=== PATIENT | male | born 1955 | race Caucasian/White ===

== ENCOUNTER 2020-01-29 07:28 | Outpatient (CLI) | payer BC, SELFPAY ==
--- NOTE | ~2020-01-29 | CT_ITS ---
EXAMINATION: CT abdomen pelvis w con EXAM DATE: 01/29/2020 08:18 INDICATION: Blood in urine. TECHNIQUE: Spiral CT of the abdomen and pelvis was performed following intravenous injection of 100 m L Omnipaque 350. Axial, coronal and sagittal images were reviewed. The dose-length product (DLP) fo r this examination was 571.84 mGy-cm. The exposure was tailored according to patient size (auto mA e xposure control), and iterative reconstruction (ASIR) was used as additional dose reduction technique . Comparison is made to prior examination from 09/23/2019. FINDINGS: Nodular cirrhotic atrophic appearing liver with small amount of ascites. There is splenomeg moose, spleen measuring 18 cm. There is portal hypertension with recannulized ligamentum teres. There i s nonocclusive thrombus within the portal vein, along the posterior wall, appears to be adherent to t he wall suggesting this has some chronicity. Thrombus also extends into one of several of the early b ranching superior mesenteric veins draining small bowel in the left lower quadrant. No arterial throm bus. Bowel supplied by the partially thrombosed superior mesenteric branch appears similar to the rem ainder of the bowel. There is generalized fat stranding surrounding the colon and small bowel, probab ly result of the ascites. There are cholecystectomy clips. Adrenal glands, pancreas are unremarkable. There is a nonobstructin g stone in the right renal pelvis measuring 7 mm, without hydronephrosis. Additional 7 and 3 mm right calyceal stones. Couple of smaller left calyceal stones. Left renal cyst measuring 2 cm. The prosta te is unremarkable. The bladder is unremarkable. There is no retroperitoneal or pelvic lymphadenopa thy. There is mild scattered arteriosclerotic disease. Some surgical changes, small bowel anastomosis material, in this patient with history of Crohn's dise ase. Appendix is not specifically identified. No free intraperitoneal gas. The heart is normal in s ize. There are no pericardial or pleural effusions. Small amount of basilar linear scarring or atel ectasis. There are no osteoblastic or osteolytic lesions identified. Sizable disc bulge with vacuum disc phenomenon causing at least moderate central canal stenosis at L2-3 level. IMPRESSION: 1. Cirrhosis, portal hypertension with splenomegaly, small to moderate ascites and generalized mesen teric fat stranding. 2. Nonocclusive portal venous thrombus also extending into a branch SMV. Bowel drained by this branc h has similar appearance to the remainder of patient's bowel, no CT evidence of ischemia. 3. Bilateral nephrolithiasis including nonobstructing right renal pelvic stone. 4. Other chronic findings. Reviewed, dictated and finalized at location A. IMPRESSION: 1. Cirrhosis, portal hypertension with splenomegaly, small to moderate ascites and generalized mesenteric fat stranding. 2. Nonocclusive portal venous thrombus also extending into a branch SMV. Bowel drained by this branch has similar appearance to the remainder of patient's lashay wel, no CT evidence of ischemia. 3. Bilateral nephrolithiasis including nonobstructing right renal pelvic stone . 4. Other chronic findings.
[2020-01-29 08:06] LABS: Estimated Glomerular Filt Rate > 60
== END 2020-01-29 07:29 | disposition home or self-care (01) ==
PROVIDERS: PCP Family Medicine Adolescent Medicine; Referring Provider Urology; Visit Provider Family Medicine Adolescent Medicine
DX: R31.9 Hematuria, unspecified (principal); K74.60 Unspecified cirrhosis of liver; K76.6 Portal hypertension; R16.1 Splenomegaly, not elsewhere classified; R18.8 Other ascites; I81 Portal vein thrombosis; N20.0 Calculus of kidney
CPT/HCPCS: 36415; 74177; Q9967

== ENCOUNTER 2020-02-14 12:41 | Outpatient (CLI) | payer BC, SELFPAY ==
--- NOTE | ~2020-02-14 | XR_ITS ---
XR lumbar spine min 4V DATE: 02/14/2020 13:10 INDICATION: Abnormal serum immunologic findings TECHNIQUE: AP, lateral, coned lateral lumbosacral, bilateral oblique views COMPARISON: None FINDINGS: There is a transitional fifth lumbar vertebra. There is severe degenerative disc disease at L2-3, L4-5, moderately severe degenerative disc disease and mild retrolisthesis at L3-4. Moderate osteopenia. No fracture or bone destruction is evident. The included lower thoracic and lumb ar pedicles are intact. No spondylolysis is evident. No anterolisthesis. The sacroiliac joints appear normal. Surgical clips overlie the right upper and lower quadrants and left medial pelvic area. Bilateral andrea al calcifications. IMPRESSION: Transitional fifth lumbar vertebra Prominent degenerative disc disease at multiple levels, with associated retrolisthesis at L3-4 Reviewed, dictated and finalized at location A. IMPRESSION: Transitional fifth lumbar vertebra Prominent degenerative disc disease at multiple levels, with associated retroli sthesis at L3-4
--- NOTE | ~2020-02-14 | XR_ITS ---
XR sacroiliac joints min 3V DATE: 02/14/2020 13:10 INDICATION: Abnormal serum immunological findings TECHNIQUE: AP and bilateral oblique views COMPARISON: None FINDINGS: There is a transitional lumbosacral vertebra with sacralization and pseudoarthrosis. There is severe degenerative disc disease at the disc space above the transitional lumbosacral vertebra. Ad ditional levels of degenerative disc disease are identified in the lumbar region. The sacroiliac joints are intact. No erosive change or ankylosis is detected. The pubic symphysis is intact. Hip joint spaces are symmetric and well preserved. IMPRESSION: Normal sacroiliac joints; no erosive change or ankylosis Transitional lumbosacral vertebra Multilevel degenerative disc disease of the lumbar spine Reviewed, dictated and finalized at Location A. Reviewed, dictated and finalized at location A.
--- NOTE | ~2020-02-14 | XR_ITS ---
XR abdomen/kub 1V DATE: 02/14/2020 13:10 INDICATION: Calcium kidney stone TECHNIQUE: AP projection, 2 views COMPARISON: None FINDINGS: Multiple calcifications overlying each kidney, larger and more numerous on the right, measu ring up to 6 7 7 mm on the right. Splenomegaly. The psoas shadows are intact. The bowel gas pattern is unremarkable, without evidence of obstruction. Surgical clips overlie the right upper and lower quadrants and lower left mid abdomen and pelvis. IMPRESSION: Bilateral nephrolithiasis Splenomegaly Postoperative changes Reviewed, dictated and finalized at Location A. Reviewed, dictated and finalized at location A.
== END 2020-02-14 12:42 | disposition home or self-care (01) ==
PROVIDERS: PCP Family Medicine Adolescent Medicine; Referring Provider Urology; Visit Provider Internal Medicine
DX: N20.0 Calculus of kidney (principal); R76.8 Other specified abnormal immunological findings in serum; R53.83 Other fatigue; M07.60 Enteropathic arthropathies, unspecified site; K50.90 Crohn's disease, unspecified, without complications; R16.1 Splenomegaly, not elsewhere classified; M51.36 Other intervertebral disc degeneration, lumbar region
CPT/HCPCS: 72110; 72202; 74018

== ENCOUNTER 2020-03-24 13:37 | Outpatient (CLI) | payer BC, SELFPAY ==
--- NOTE | 2020-03-24 13:42 | ECG_ITS ---
Measurements Intervals [place] Rate: 88 P: 62 CO: 147 QRS: 32 QRSD: 89 T: 55 QT: 340 QTc: 413 Interpretive Statements SINUS RHYTHM NORMAL ECG Electronically Signed On 03-24-2020 14:03:13 CDT by Bishop Harrison D.O.
[2020-03-24 14:10] LABS: INR 1.1; Prothrombin Time 13.8 Seconds (11.1-14.7)
== END 2020-03-24 13:38 | disposition home or self-care (01) ==
LOC: ANHSURGERY 13:42
PROVIDERS: PCP Family Medicine Adolescent Medicine; Visit Provider Urology
DX: N20.0 Calculus of kidney (principal); I10 Essential (primary) hypertension
CPT/HCPCS: 36415; 85610; 85730; 87086; 93005

== ENCOUNTER 2020-04-01 01:03 | Outpatient (CLI) | payer BC, SELFPAY ==
[2020-04-01 18:07] LABS: SARS-CoV-2 RNA PCR Negative
== END 2020-04-01 01:04 | disposition home or self-care (01) ==
LOC: ANHCOVIDDT 01:03
PROVIDERS: PCP Family Medicine Adolescent Medicine; Visit Provider Urology
DX: Z01.812 Encounter for preprocedural laboratory examination (principal); Z11.59 Encounter for screening for other viral diseases
CPT/HCPCS: 87635; C9803; U0003

== ENCOUNTER 2020-04-03 02:06 | Day surgery (SDC) | payer BC, SELFPAY ==
[2020-03-23 15:53] VITALS: BMI 25.1
[2020-04-03] VITALS (7 sets, daily range): BP systolic 125–138; BP diastolic 77–87; PULSE 63–82; RESP 12–189; TEMP 36.1–36.3; O2SAT 97–100
--- NOTE | ~2020-04-03 | XR_ITS ---
EXAMINATION: XR abdomen/kub 1V DATE: 04/03/2020 07:43 INDICATION: Right kidney stone. TECHNIQUE: A supine view of the abdomen on 2 radiographs was obtained. COMPARISON: Abdomen radiographs 02/14/2020, CT abdomen and pelvis 01/29/2020 FINDINGS: There are no dilated loops of bowel. There is a 6 mm stone in right renal pelvis. There are 6 mm and 4 mm stones in right kidney. There are 2 stones in left kidney with the larger measuring 4 mm. Surgical clips overlie the abdomen. IMPRESSION: 1. Bilateral kidney stones. Reviewed, dictated and finalized at location A. IMPRESSION: 1. Bilateral kidney stones.
--- NOTE | 2020-04-03 07:25 | WPDHPUPDATE1 ---
History and Physical Update Update Date/Time: 04/03/20 07:25 History and Physical has been reviewed, including an updated exam of the patient. There are NO changes in the patient's condition. Risks, benefits, and alternatives have been discussed and questions answered. Patient agrees to proceed with procedure.
[2020-04-03] MEDS: LACTATED RINGERS 1,000 ML 30 ML IV CONT ×2 (08:15→10:50)
--- NOTE | 2020-04-03 09:01 | WPDANESEPPF ---
Anes - Initial Pre Proc Eval Procedure: Operation Date: 04/03/20 09:30 Proposed Procedures p Flexible Cystoscopy, Right Renal Extracorporeal Shock Wave Lithotripsy - Edin Birch MD Date/Time: 04/03/20 09:01 Surgeon: Edin Birch MD Pre Op Diagnosis: Right Renal Stone Patient Data Age: 64 Gender: M Height: 5 ft 9 in Weight: 77.65 kg Last Vital Signs Temp 36.1 C L 04/03/20 07:52 Pulse 82 04/03/20 07:52 Resp 189 H 04/03/20 07:52 BP 125/84 04/03/20 07:52 Pulse Ox 99 04/03/20 07:52 Allergies Allergy/AdvReac Type Severity Reaction Status Date / Time ciprofloxacin Allergy Unknown REACTED TO Verified 04/03/20 08:33 VIGAMOX AND INSTRUCTED NOT TO TAKE CIPRO moxifloxacin Allergy Unknown REDNESS IN Verified 04/03/20 08:33 EYES Home Medications Medication Instructions Recorded Confirmed Type cyanocobalamin (vitamin B-12) 1,000 mcg PO DAILY 10/01/19 03/23/20 History [Vitamin B-12] cyclosporine [Restasis] 1 drp OPHTHALMIC (EYE) Q12H 10/01/19 03/23/20 History hydrocodone-acetaminophen 1 tablet PO TID PRN 10/01/19 03/23/20 History lisinopril 40 mg PO DAILY 10/01/19 03/23/20 History magnesium oxide 400 mg PO BID 10/01/19 03/23/20 History omeprazole 20 mg PO DAILY 10/01/19 03/23/20 History potassium chloride 20 meq PO DAILY 10/01/19 03/23/20 History valacyclovir 500 mg PO DAILY 10/01/19 03/23/20 History amlodipine 10 mg tablet 10 mg PO DAILY 01/31/20 03/23/20 History prednisone 20 mg tablet 20 mg PO DAILY tablet 01/31/20 03/23/20 History Medical Cannabis 1 applic PO DIRECTED PRN 03/23/20 04/03/20 History cholecalciferol (vitamin D3) 125 mcg PO WEEKLY 03/23/20 03/23/20 History [Vitamin D3] doxazosin 2 mg PO DAILY 03/23/20 03/23/20 History ustekinumab [Stelara] 90 mg SUBCUT USEASDIRECTD 03/23/20 03/23/20 History Patient hx anesthesia problems: none Family hx anesthesia problems: none PMFSH Past Medical History Medical History Arthritis Arthropathy in Crohn's disease (~1972) Crohn's disease Fatigue GERD (gastroesophageal reflux disease) Hypertension Kidney stone Surgical History Surgical History History of lithotripsy S/P small bowel resection Family History Family History Other Cerebrovascular accident Diabetes mellitus Family history of arthritis Family history of cardiovascular disease Hypertension Social History Social History Smoking status: Never smoker Alcohol intake: current Substance use: current Substance use type: marijuana Other substance usage details: MEDICAL MARIJUANA FOR PAIN CONTROL Spiritual care concerns: No Anes - Eval Final PreProcedure Day of Procedure 04/03/20 09:01 Patient weight: normal Heart: regular rate and rhythm Lungs: clear to auscultation Airway: Mallampati scale class II Neurological: alert and oriented Last oral intake: >/= 8 hours ASA classification: III Emergent: no Anesthetic plan: proceed Anesthesia type and monitoring: general LMA and standard monitoring Informed Consent: The patient's anesthetic plan and its attendant risks and benefits were discussed with the patient/family/POA. Questions were solicited and answers provided to the satisfaction of the patient/family/POA.
--- NOTE | 2020-04-03 09:27 | WPDHPUPDATE1 ---
History and Physical Update Update Date/Time: 04/03/20 09:27 History and Physical has been reviewed, including an updated exam of the patient. There are NO changes in the patient's condition. Risks, benefits, and alternatives have been discussed and questions answered. Patient agrees to proceed with procedure.
[2020-04-03] MEDS: ceFAZolin 2 GM/D5W 50 ML 2 GM/50 ML BAG IVPB (09:49)
[2020-04-03] MEDS: LIDOCAINE HCL 2% GEL UROJET 10 ML PKG MUCOUS MEM (10:07)
--- NOTE | 2020-04-03 10:41 | PM.PROC ---
Procedure Note - Detailed Date of procedure: 04/03/20 Pre-op diagnosis: Right Renal Stone Right renal stone, hematuria Post-op diagnosis: same Procedure performed: ESWL of right renal calculus. Two thousand shocks to the larger 7 mm stone. Five hundred shocks to the lower pole stone measuring 4 mm. Flexible cystoscopy Description of procedure: Patient was taken to the operative suite and correctly identified. Once anesthesia was obtained he was placed in supine position prepped and draped usual sterile fashion. Flexible cystoscopy was performed. Sixteen [place] scope was placed under direct vision. There were no urethral strictures. Prostate had some mild lateral lobe hypertrophy. Bladder itself has no evidence of tumors or other irregularities. Both ureteral orifices normal anatomic position with clear efflux. Scope was removed. 2% viscous lidocaine was inserted urethra. Patient was then repositioned with the larger 7 mm stone of the right kidney visualized in both planes. Two thousand shocks were given to this stone. We then gave our attention to a another lower pole stone and gave the remaining 500 shocks. Patient tolerated procedure well without any complications taken recovery room stable condition. Given the standard post lithotripsy instruction will follow up in 10-14 days with a KUB. Develops any problems he will call so we can deal with appropriately. Anesthesia: GLMA Surgeon: Edin Birch MD Drains: No Packing: No Pathology: none sent Complications: No immediate complications Condition: stable Disposition: PACU
== END 2020-04-03 12:55 | disposition home or self-care (01) ==
PROVIDERS: PCP Family Medicine Adolescent Medicine; Visit Provider Urology
PROC: (CPT 50590; principal; 2020-04-03 09:30)
DX: N20.0 Calculus of kidney (principal); K50.90 Crohn's disease, unspecified, without complications; K21.9 Gastro-esophageal reflux disease without esophagitis; I10 Essential (primary) hypertension; F12.90 Cannabis use, unspecified, uncomplicated
CPT/HCPCS: 50590; 74018; 87635; A9270; C9803; J0131; J0690; J1100; J1720; J2370; J2405; J2704; J3010; J7120; U0003

== ENCOUNTER 2020-04-16 12:02 | Outpatient (CLI) | payer BC, SELFPAY ==
--- NOTE | ~2020-04-16 | XR_ITS ---
XR abdomen/kub 1V DATE: 04/16/2020 12:18 INDICATION: Calcium kidney stone. Right recent lithotripsy. TECHNIQUE: AP projection, 2 views COMPARISON: 04/03/2020 KUB FINDINGS: There is a similar residual calcified calculus of the upper pole of the right kidney. Multi ple calcifications overlying the lower pole of the right kidney in the right renal pelvis on 0 are no longer evident. There is no apparent calcification overlying the right or left ureters. There are 2 small calcifications of the mid left kidney, present on 04/03/2020. The psoas shadows are intact. No visceromegaly is evident. No bowel obstruction is evident. Surgical clips overlie the right upper quadrant and right lower quadrant and mid lower abdomen and pe lvis. Multilevel degenerative disc disease of the lumbar spine. IMPRESSION: Interval resolution of multiple right renal and renal pelvic calcified calculi since 04/03 following reported lithotripsy Residual small upper pole right renal calcified stone and at least 2 small mid left renal calcified s tones. Reviewed, dictated and finalized at Location A. Reviewed, dictated and finalized at location B. IMPRESSION: Interval resolution of multiple right renal and renal pelvic calcif ied calculi since 04/03/2020 following reported lithotripsy Residual small upper pole right renal calcified stone and at least 2 small mid left renal calcified stones.
== END 2020-04-16 12:03 | disposition home or self-care (01) ==
PROVIDERS: PCP Family Medicine Adolescent Medicine; Visit Provider Urology
DX: N20.2 Calculus of kidney with calculus of ureter (principal)
CPT/HCPCS: 74018

== ENCOUNTER 2020-06-15 12:48 | Outpatient (CLI) | payer BC, SELFPAY | END 2020-06-15 12:49 | disposition home or self-care (01) | LOC: ANHAUDIO 12:50 | PROVIDERS: PCP Family Medicine Adolescent Medicine; Visit Provider Family Medicine Adolescent Medicine | DX: H90.3 Sensorineural hearing loss, bilateral (principal) | CPT/HCPCS: 92557; 92567 ==

== ENCOUNTER 2020-07-26 08:34 | Emergency (ER) | payer BC, SELFPAY ==
--- NOTE | ~2020-07-26 | XR_ITS ---
EXAMINATION: XR hip LT 2V w AP pelvis INDICATION: Left hip pain and swelling TECHNIQUE: AP view the pelvis and two views of the left hip are obtained. COMPARISON: 02/14/2020 FINDINGS: Bone alignment is normal. There is no fracture. Surgical clips are noted in the pelvis and right mid abdomen. There is calcified atherosclerosis. IMPRESSION: 1. No acute osseous abnormality. Reviewed, dictated and finalized at location A. Y MACHINERY OPERATOR
--- NOTE | ~2020-07-26 | US_ITS ---
EXAMINATION: US venous doppler [facility] DATE: 07/26/2020 10:05 INDICATION: Left lower limb swelling TECHNIQUE: Lance scale images without and with compression and Doppler images of the left lower extrem ity veins were obtained. COMPARISON: None FINDINGS: There is thrombosis of the left common femoral vein, profunda femoral vein, femoral vein, g reater saphenous vein, and popliteal veins. The peroneal trunk trunk and posterior tibial veins are p atent. IMPRESSION: 1. Deep venous thrombosis of the left lower extremity as detailed above. These findings were discussed with Dr. Corrie Harp MD in the Emergency Department at 1014 hours on 07/26/2020. Reviewed, dictated and finalized at location A. BONE DRIER IMPRESSION: 1. Deep venous thrombosis of the left lower extremity as detailed above. These findings were discussed with Dr. Corrie Harp MD in the Emergency De partment at 1014 hours on 07/26/2020.
[2020-07-26 08:49] VITALS: BP 119/89; PULSE 86; RESP 14; TEMP 36.9; O2SAT 99
--- NOTE | 2020-07-26 09:19 | ED.EXTPRO ---
HPI - Extremity Problem General Chief complaint: Extremity Problem,Nontraumatic Stated complaint: left leg swelling Time Seen by Provider: 07/26/20 08:52 Source: patient Mode of arrival: ambulatory Limitations: no limitations History of Present Illness HPI Narrative: This patient is a 64 year old male with history of Chrohn's Disease who presents for evaluation left leg swelling. PAtient states he noticed left lateral hip soreness yesterday. He reports he has this pain intermittently and frequently so he thought his pain was arthritis. He woke up this morning with his entire left leg swollen. He denies history of dVT. HE denies fever, chills, chest pain or sob. MD Complaint: extremity swelling Related Data Home Medications Medication Instructions Recorded Confirmed Restasis 1 drp OPHTHALMIC (EYE) Q12H 10/01/19 04/21/20 cyanocobalamin (vitamin B-12) 1,000 mcg PO DAILY 10/01/19 04/21/20 [Vitamin B-12] hydrocodone-acetaminophen 1 tablet PO TID PRN 10/01/19 04/21/20 lisinopril 40 mg PO DAILY 10/01/19 04/21/20 magnesium oxide 400 mg PO BID 10/01/19 04/21/20 omeprazole 20 mg PO DAILY 10/01/19 04/21/20 potassium chloride 20 meq PO DAILY 10/01/19 04/21/20 valacyclovir 500 mg PO DAILY 10/01/19 04/21/20 amlodipine 10 mg tablet 10 mg PO DAILY 01/31/20 04/21/20 prednisone 20 mg tablet 20 mg PO DAILY tablet 01/31/20 03/23/20 Medical Cannabis 1 applic PO DIRECTED PRN 03/23/20 04/21/20 Stelara 90 mg SUBCUT USEASDIRECTD 03/23/20 04/21/20 cholecalciferol (vitamin D3) 125 mcg PO WEEKLY 03/23/20 04/21/20 [Vitamin D3] doxazosin 2 mg PO DAILY 03/23/20 04/21/20 budesonide 3 mg 3 mg PO DAILY 04/21/20 04/21/20 capsule,delayed,extended release budesonide 3 mg 6 mg PO DAILY each 04/21/20 04/21/20 capsule,delayed,extended release Allergies Allergy/AdvReac Type Severity Reaction Status Date / Time ciprofloxacin Allergy Unknown REACTED TO Verified 04/21/20 14:35 VIGAMOX AND INSTRUCTED NOT TO TAKE CIPRO moxifloxacin Allergy Unknown REDNESS IN Verified 04/21/20 14:35 EYES Review of Systems Review of Systems: All systems reviewed & are unremarkable except as noted in HPI and below Constitutional: Constitutional: Denies chills and Denies fever(s) Cardiovascular: Cardiovascular: Denies chest pain Respiratory: Respiratory: Denies cough and Denies dyspnea Gastrointestinal: Gastrointestinal: Reports abdominal pain (chronic), Denies nausea and Denies vomiting Musculoskeletal: Musculoskeletal: Reports arthralgias (left hip) Neurologic: Denies focal weakness [facility] Past Medical History Medical History (Updated 07/26/20 @ 18:43 by Corrie Harp MD) Arthritis Arthropathy in Crohn's disease (~1972) Crohn's disease Fatigue GERD (gastroesophageal reflux disease) Hypertension Kidney stone Surgical History Surgical History History of lithotripsy S/P small bowel resection Family History Family History Other Cerebrovascular accident Diabetes mellitus Family history of arthritis Family history of cardiovascular disease Hypertension Social History Social History Smoking status: Never smoker Alcohol intake: current Substance use: current Substance use type: marijuana Other substance usage details: MEDICAL MARIJUANA FOR PAIN CONTROL Spiritual care concerns: No Exam Const: General: no acute distress and alert Orientation/consciousness: patient oriented x3 Eyes: EOM: EOMs intact bilaterally Resp: Effort & Inspection: normal respiratory effort and no retractions Auscultation: clear to auscultation bilaterally Cardio: Rate: regular rate Rhythm: regular rhythm Heart sounds: no murmurs GI: GI Palp: Yes Soft to palpation, No Tenderness to palpation present (GI), No Guarding due to palpation pre
[2020-07-26 09:31] LABS: Basophils Percent Auto 0.2 % (0.2-1.2); Eosinophils Percent Auto 0.7 % (0-4.4); Hematocrit 39.1 % (42.0-52.0); Hemoglobin 12.7 g/dL (14.0-18.0); Immature Granulocyte Absolute 0.05 K/mm3 (0.00-0.031); Immature Granulocyte Percent A 1.1 % (0-0.5); Immature Platelet Fraction Pct 7.8 % (0.9-11.2); Lymphocytes Absolute Auto 0.53 K/mm3 (0.9-3.2); Lymphocytes Percent Auto 11.5 % (18.3-44.2); Mean Corpuscular HGB Conc 32.5 g/dl (32-36); Mean Corpuscular Hemoglobin 29.5 pg (26-34); Mean Corpuscular Volume 90.7 fl (80-100); Mean Platelet Volume 10.9 fl (7.4-10.4); Monocytes Absolute Auto 0.4 K/mm3 (0.1-0.6); Monocytes Percent Auto 9.2 % (2.6-8.5); Neutrophils Absolute Auto 3.6 K/mm3 (1.3-6.7); Neutrophils Percent Auto 77.3 % (45.5-73.1); Platelet Count Result 41 k/mm3 (150-375); Red Blood Count 4.31 M/mm3 (4.6-6.20); Red Cell Distribution Width 14.5 % (11.5-14.5); White Blood Count 4.6 K/mm3 (4.5-10.0)
[2020-07-26 09:37] LABS: INR 1.2; Prothrombin Time 14.4 Seconds (11.1-14.7)
[2020-07-26 09:38] LABS: Partial Thromboplastin Time 23.9 SECONDS (22.3-36.8)
[2020-07-26 09:40] LABS: Alanine Aminotransferase 30 U/L (4-50); Albumin Level 3.8 g/dL (3.5-5.1); Alkaline Phosphatase 89 U/L (38-126); Anion Gap 9 mmol/L (8-16); Aspartate Amino Transferase 36 U/L (17-59); Bilirubin,Total 1.9 mg/dL (0.2-1.3); Blood Urea Nitrogen 16 mg/dL (9-20); Calcium 8.8 mg/dL (8.4-10.2); Carbon Dioxide 26 mmol/L (22-30); Chloride 105 mmol/L (98-107); Estimated CRCL calculation 66 ml/min; Estimated Glomerular Filt Rate > 60; Glucose 110 mg/dL (75-110); Potassium 3.4 mmol/L (3.4-5.0); Sodium 140 mmol/L (137-145)
[2020-07-26] MEDS: APIXABAN 5 MG TABLET 10 MG PO (10:53)
[2020-07-26 11:08] VITALS: BP 115/70; PULSE 60; RESP 12; O2SAT 99
== END 2020-07-26 11:08 | disposition home or self-care (01) ==
PROVIDERS: Emergency Provider General Practice; PCP Family Medicine Adolescent Medicine
DX: I82.412 Acute embolism and thrombosis of left femoral vein (principal); I82.432 Acute embolism and thrombosis of left popliteal vein; I82.492 Acute embolism and thrombosis of other specified deep vein of left lower extremity; K50.90 Crohn's disease, unspecified, without complications; M19.90 Unspecified osteoarthritis, unspecified site; K21.9 Gastro-esophageal reflux disease without esophagitis; I10 Essential (primary) hypertension; Z87.442 Personal history of urinary calculi
CPT/HCPCS: 36415; 73502; 80053; 85025; 85055; 85610; 85730; 93971; 99284; A9270

== ENCOUNTER 2020-09-20 10:06 | Day surgery (SDC) | payer BC, SELFPAY ==
[2020-09-20] VITALS (10 sets, daily range): BP systolic 120–149; BP diastolic 79–94; PULSE 78–104; RESP 8–20; TEMP 36.2–36.8; O2SAT 95–100
--- NOTE | ~2020-09-20 | CT_ITS ---
EXAMINATION: CT abdomen pelvis wo con EXAM DATE: 09/20/2020 10:47 INDICATION: left flank pain TECHNIQUE: Spiral CT of the abdomen and pelvis was performed without contrast. Axial, coronal and sag ittal images were reviewed. The dose-length product (DLP) for this examination was 660.72 mGy-cm. T he exposure was tailored according to patient size (auto mA exposure control), and iterative reconstr uction (ASIR) was used as additional dose reduction technique. Comparison is made to prior examinatio n from 01/29/2020. FINDINGS: Nodular cirrhotic atrophic appearing liver with small amount of ascites. There is splenome darnell, spleen measuring 19 cm. There is portal hypertension with recannulized ligamentum teres and pro minent mesenteric, pericolonic vasculature. Dilated splenic vein near the portal confluence (can't as sess for the thrombus identified on prior study). Mild periportal edema. Cholecystectomy clips. Adren al glands and pancreas are unremarkable. There is a left UVJ 4 mm stone, with mild obstructive nephropathy. Bilateral nephrolithiasis with lar gest stone in each side about 5 mm in size. There is a left renal 2.5 cm cyst. The prostate is unrema rkable. The bladder is unremarkable. There is no retroperitoneal or pelvic lymphadenopathy. There is mild scattered arteriosclerotic disease. Nonspecific fat stranding surrounding the colon unchanged compared to prior study, chronic and potent ially could be from venous congestion. Some surgical changes, small bowel anastomosis material, in this patient with history of Crohn's dise ase. Normal appendix. No free intraperitoneal gas. The heart is normal in size. There are no peric ardial or pleural effusions. Small amount of basilar linear scarring or atelectasis. There are no o steoblastic or osteolytic lesions identified. Sizable disc bulge with vacuum disc phenomenon causing at least moderate central canal stenosis at L2-3 level. IMPRESSION: 1. Left UVJ 4 mm stone, mild obstructive nephropathy. Bilateral nephrolithiasis. 2. Cirrhosis, portal hypertension with splenomegaly, small ascites and generalized mesenteric fat st randing unchanged. Reviewed, dictated and finalized at location A. CAL PATHOLOGY TEACHER IMPRESSION: 1. Left UVJ 4 mm stone, mild obstructive nephropathy. Bilateral nephrolithiasi s. 2. Cirrhosis, portal hypertension with splenomegaly, small ascites and general ized mesenteric fat stranding unchanged.
--- NOTE | ~2020-09-20 | XR_ITS ---
EXAMINATION: XR retrograde pyelo w/stent LT DATE: 09/20/2020 15:03 INDICATION: Left internal ureteral stent placement following stone extraction TECHNIQUE: Fluoroscopic images from a left internal ureteral stent placement are submitted for review . 37 seconds of fluoroscopy time. 29 fluoroscopic images. FINDINGS: There is a left double-J internal ureteral stent projecting in expected position, with proximal Valmy loop at the level of the renal pelvis and distal loop in the pelvis within the bladder lumen. IMPRESSION: 1. Left internal ureteral stent placement. Please refer to real-time procedural findings for detail s. Reviewed, dictated and finalized at location A. ING ACID DUMPER IMPRESSION: 1. Left internal ureteral stent placement. Please refer to real-time procedur al findings for details.
--- NOTE | ~2020-09-20 | CT_ITS ---
EXAMINATION: CT pelvis wo con DATE: 09/20/2020 14:21 INDICATION: Assess stone passage TECHNIQUE: Computed tomography (CT) of the pelvis was performed without intravenous contrast. The dos e-length product was 350.76 mGy-cm. Automated exposure control and iterative reconstruction technique were employed. COMPARISON: CT dated 09/20/2020 FINDINGS: There is a persistent left UVJ stone measuring 4 mm with moderate left hydroureteronephrosi s. There is generalized mesenteric edema. Surgical clips are present in the mid abdomen at the umbili jt level and below the umbilical level. There is atherosclerosis. No lymphadenopathy. There is right testicular hydrocele. Small amount of ascites. Otherwise, no significant change. No acute osseous ab normality. IMPRESSION: 1. Stable position to 4 mm left UVJ stone with moderate hydroureteronephrosis. Reviewed, dictated and finalized at location A. WORKER SEWING
--- NOTE | 2020-09-20 10:16 | ED.GENADULT ---
HPI - General Adult General Chief complaint: Abdominal Pain <MICHELLE Jalloh Last Filed: 09/20/20 14:36> Stated complaint: hematuria, abd pain <MICHELLE Jalloh Last Filed: 09/20/20 14:36> Time Seen by Provider: 09/20/20 10:09 <Karina Johnson PA-C - Last Filed: 09/20/20 14:36> Source: patient <MICHELLE Jalloh Last Filed: 09/20/20 14:36> Mode of arrival: ambulatory <MICHELLE Jalloh Last Filed: 09/20/20 14:36> Limitations: no limitations <MICHELLE Jalloh Last Filed: 09/20/20 14:36> History of Present Illness HPI narrative: This is a 64-year-old male who is a very good historian, states that he has had left flank and groin pain that has been somewhat colicky for the past several days. He has a long history of renal stones, Crohn's disease and most recently a left leg DVT. He is on Eliquis. He states that he could occasionally see rust colored urine, it would clear. And today he does not see any blood. His left leg swelling has resolved. He denies any fever, dysuria, chest pain, shortness of breath <Karina Johnson PA-C - Last Filed: 09/20/20 14:36> Onset (ago): day(s) <MICHELLE Jalloh Last Filed: 09/20/20 14:36> Location: abdomen <MICHELLE Jalloh Last Filed: 09/20/20 14:36> Radiation: flank <MICHELLE Jalloh Last Filed: 09/20/20 14:36> Severity: severe <MICHELLE Jalloh Last Filed: 09/20/20 14:36> Pain Consistency: constant <MICHELLE Jalloh Last Filed: 09/20/20 14:36> Relieving factors: none <Karina Johnson PA-C - Last Filed: 09/20/20 14:36> Treatments prior to arrival: other (7.5 mg Hydrocodone at 0800) <Karina Johnson PA-C - Last Filed: 09/20/20 14:36> Related Data Home medications: Home Medications Medication Instructions Recorded Confirmed Restasis 1 drp OPHTHALMIC (EYE) Q12H 10/01/19 04/21/20 cyanocobalamin (vitamin B-12) 1,000 mcg PO DAILY 10/01/19 04/21/20 [Vitamin B-12] hydrocodone-acetaminophen 1 tablet PO TID PRN 10/01/19 04/21/20 lisinopril 40 mg PO DAILY 10/01/19 04/21/20 magnesium oxide 400 mg PO BID 10/01/19 04/21/20 omeprazole 20 mg PO DAILY 10/01/19 04/21/20 potassium chloride 20 meq PO DAILY 10/01/19 04/21/20 valacyclovir 500 mg PO DAILY 10/01/19 04/21/20 amlodipine 10 mg tablet 10 mg PO DAILY 01/31/20 04/21/20 prednisone 20 mg tablet 20 mg PO DAILY tablet 01/31/20 03/23/20 Medical Cannabis 1 applic PO DIRECTED PRN 03/23/20 04/21/20 Stelara 90 mg SUBCUT USEASDIRECTD 03/23/20 04/21/20 cholecalciferol (vitamin D3) 125 mcg PO WEEKLY 03/23/20 04/21/20 [Vitamin D3] doxazosin 2 mg PO DAILY 03/23/20 04/21/20 budesonide 3 mg 3 mg PO DAILY 04/21/20 04/21/20 capsule,delayed,extended release budesonide 3 mg 6 mg PO DAILY each 04/21/20 04/21/20 capsule,delayed,extended release <Karina Johnson PA-C - Last Filed: 09/20/20 14:36> Allergies/adverse reactions: Allergies Allergy/AdvReac Type Severity Reaction Status Date / Time ciprofloxacin Allergy Unknown REACTED TO Verified 09/20/20 10:15 VIGAMOX AND INSTRUCTED NOT TO TAKE CIPRO moxifloxacin Allergy Unknown REDNESS IN Verified 09/20/20 10:15 EYES hydromorphone [From Dilaudid] Allergy Hallucinati Verified 09/20/20 10:15 ng <Karina Johnson PA-C - Last Filed: 09/20/20 14:36> Review of Systems Review of Systems: All systems reviewed & are unremarkable except as noted in HPI and below <Karina Johnson PA-C - Last Filed: 09/20/20 14:36> [facility] Past Medical History Medical History: Medical History Arthritis Arthropathy in Crohn's disease (~1972) Crohn's disease DVT (deep venous thrombosis) Fatigue GERD (gastroesophageal reflux disease) Hypertension Kidney stone Left ureteral stone <Karina Johnson PA-C - Last Filed: 09/20/20 14:36> Surgical History [facility]
[2020-09-20 10:42] LABS: Basophils Percent Auto 0.4 % (0.2-1.2); Eosinophils Percent Auto 0.8 % (0-4.4); Hematocrit 35.6 % (42.0-52.0); Hemoglobin 11.2 g/dL (14.0-18.0); Immature Granulocyte Absolute 0.03 K/mm3 (0.00-0.031); Immature Granulocyte Percent A 0.6 % (0-0.5); Immature Platelet Fraction Pct 6.2 % (0.9-11.2); Lymphocytes Absolute Auto 0.67 K/mm3 (0.9-3.2); Lymphocytes Percent Auto 12.9 % (18.3-44.2); Mean Corpuscular HGB Conc 31.5 g/dl (32-36); Mean Corpuscular Hemoglobin 27.6 pg (26-34); Mean Corpuscular Volume 87.7 fl (80-100); Mean Platelet Volume 11.1 fl (7.4-10.4); Monocytes Absolute Auto 0.5 K/mm3 (0.1-0.6); Monocytes Percent Auto 9.6 % (2.6-8.5); Neutrophils Percent Auto 75.7 % (45.5-73.1); Platelet Count Result 61 k/mm3 (150-375); Red Blood Count 4.06 M/mm3 (4.6-6.20); Red Cell Distribution Width 13.9 % (11.5-14.5); White Blood Count 5.2 K/mm3 (4.5-10.0)
[2020-09-20 10:46] LABS: Add Urine Microscopic? YES; Appearance Urine Clear (Clear); Bilirubin Urine Negative (Negative); Blood Urine 3+ (Negative); Color Urine Yellow (Yellow); Glucose Urine UA Negative (Negative); Ketones Urine Negative (Negative); Leukocyte Esterase Ur Negative LEU/UL (Negative); Mucus Urine Rare /lpf; Nitrate Urine Negative (Negative); Protein Urine 1+ mg/dL (Negative); RBC Urine >75 /hpf (0-2); Specific Grav Ur 1.021 (1.001-1.035); Urobilinogen Urine Negative mg/dL (<2.0)
[2020-09-20 10:51] LABS: Alanine Aminotransferase 32 U/L (4-50); Albumin Level 3.6 g/dL (3.5-5.1); Alkaline Phosphatase 97 U/L (38-126); Anion Gap 8 mmol/L (8-16); Aspartate Amino Transferase 27 U/L (17-59); Bilirubin,Total 0.7 mg/dL (0.2-1.3); Blood Urea Nitrogen 17 mg/dL (9-20); Calcium 8.4 mg/dL (8.4-10.2); Carbon Dioxide 31 mmol/L (22-30); Chloride 100 mmol/L (98-107); Estimated CRCL calculation 45 ml/min; Estimated Glomerular Filt Rate 47; Glucose 113 mg/dL (75-110); Potassium 3.1 mmol/L (3.4-5.0); Sodium 139 mmol/L (137-145)
[2020-09-20] MEDS: SODIUM CHLORIDE 0.9% IV 1,000 ML 999 ML IV CONT (10:51)
[2020-09-20] MEDS: MORPHINE SULFATE (*CRX) 2 MG/ML INJ IV PUSH (10:51)
[2020-09-20] MEDS: ONDANSETRON INJ 4 MG/2 ML VIAL IV PUSH (10:51)
[2020-09-20] MEDS: TAMSULOSIN HCL 0.4 MG CAPSULE PO (11:15)
[2020-09-20] MEDS: fentaNYL CITRATE INJ (*CRX) 100 MCG/2 ML VIAL 50 MCG IV PUSH (11:15)
[2020-09-20] MEDS: MORPHINE SULFATE (*CRX) 4 MG/ML INJ IV PUSH (12:21)
--- NOTE | 2020-09-20 12:37 | PC.NURSE ---
FRED Uriarte spoke with this nurse about taking patient to OR. He reports that patient will have OR slot around 2pm. He reports that he is going to order platelets for patient. Blood transfusion consent signed.
--- NOTE | 2020-09-20 12:47 | WPDANESEPP ---
Anes - Eval Pre Procedure Procedure: Cystoscopy Date/Time: 09/20/20 12:47 Surgeon: Amarjit Moreno Pre Op Diagnosis: Renal Stone Patient Data Age: 64 Gender: M Height: 1.75 m Weight: 81.6 kg Last Vital Signs Temp 36.3 C L 09/20/20 10:12 Pulse 91 09/20/20 11:57 Resp 20 09/20/20 11:20 BP 149/79 H 09/20/20 11:57 Pulse Ox 97 09/20/20 11:57 Allergies Allergy/AdvReac Type Severity Reaction Status Date / Time ciprofloxacin Allergy Unknown REACTED TO Verified 09/20/20 10:15 VIGAMOX AND INSTRUCTED NOT TO TAKE CIPRO moxifloxacin Allergy Unknown REDNESS IN Verified 09/20/20 10:15 EYES hydromorphone [From Dilaudid] Allergy Hallucinati Verified 09/20/20 10:15 ng Home Medications Medication Instructions Recorded Confirmed Type Restasis 1 drp OPHTHALMIC (EYE) Q12H 10/01/19 04/21/20 History cyanocobalamin (vitamin B-12) 1,000 mcg PO DAILY 10/01/19 04/21/20 History [Vitamin B-12] hydrocodone-acetaminophen 1 tablet PO TID PRN 10/01/19 04/21/20 History lisinopril 40 mg PO DAILY 10/01/19 04/21/20 History magnesium oxide 400 mg PO BID 10/01/19 04/21/20 History omeprazole 20 mg PO DAILY 10/01/19 04/21/20 History potassium chloride 20 meq PO DAILY 10/01/19 04/21/20 History valacyclovir 500 mg PO DAILY 10/01/19 04/21/20 History amlodipine 10 mg tablet 10 mg PO DAILY 01/31/20 04/21/20 History prednisone 20 mg tablet 20 mg PO DAILY tablet 01/31/20 03/23/20 History Medical Cannabis 1 applic PO DIRECTED PRN 03/23/20 04/21/20 History Stelara 90 mg SUBCUT USEASDIRECTD 03/23/20 04/21/20 History cholecalciferol (vitamin D3) 125 mcg PO WEEKLY 03/23/20 04/21/20 History [Vitamin D3] doxazosin 2 mg PO DAILY 03/23/20 04/21/20 History budesonide 3 mg 3 mg PO DAILY 04/21/20 04/21/20 History capsule,delayed,extended release budesonide 3 mg 6 mg PO DAILY each 04/21/20 04/21/20 History capsule,delayed,extended release apixaban [Eliquis DVT-PE Treat 30D See Rx Instructions .ROUTE 07/26/20 Rx Start] .COMPLEX #74 ea Laboratory Tests 09/20/20 09/20/20 09/20/20 10:31 10:31 10:31 WBC 5.2 K/mm3 K/mm3 (4.5-10.0) RBC 4.06 M/mm3 L M/mm3 (4.6-6.20) Hgb 11.2 g/dL L g/dL (14.0-18.0) Hct 35.6 % L % (42.0-52.0) MCV 87.7 fl fl (80-100) MCH 27.6 pg pg (26-34) MCHC 31.5 g/dl L g/dl (32-36) RDW 13.9 % % (11.5-14.5) Plt Count 61 k/mm3 L k/mm3 (150-375) MPV 11.1 fl H fl (7.4-10.4) Immature Gran % (Auto) 0.6 % H % (0-0.5) Neut % (Auto) 75.7 % H % (45.5-73.1) Lymph % (Auto) 12.9 % L % (18.3-44.2) [place] % (Auto) 9.6 % H % (2.6-8.5) Eos % (Auto) 0.8 % % (0-4.4) Baso % (Auto) 0.4 % % (0.2-1.2) Lymph # (Auto) 0.67 K/mm3 L K/mm3 (0.9-3.2) [place] # (Auto) 0.5 K/mm3 K/mm3 (0.1-0.6) Eos # (Auto) 0.0 K/mm3 K/mm3 (0-0.3) Baso # (Auto) 0.0 K/mm3 K/mm3 (0.0-0.1) Abs Immat Gran (auto) 0.03 K/mm3 K/mm3 (0.00-0.031) Absolute Neuts (auto) 4.0 K/mm3 K/mm3 (1.3-6.7) Absolute Nucleated RBC 0.0 K/mm3 K/mm3 (0.0-0.012) Nucleated RBC % 0.0 % % (0.0-0.2) % Immature Plt Fraction 6.2 % % (0.9-11.2) Sodium 139 mmol/L mmol/L (137-145) Potassium 3.1 mmol/L L mmol/L (3.4-5.0) Chloride 100 mmol/L mmol/L (98-107) Carbon Dioxide 31 mmol/L H mmol/L (22-30) Anion Gap 8 mmol/L mmol/L (8-16) BUN 17 mg/dL mg/dL (9-20) Creatinine 1.50 mg/dL H mg/dL (0.7-1.3) Estim Creat Clear Calc 45 ml/min ml/min Estimated GFR 47 L (59 - ) Glucose 113 mg/dL H mg/dL (75-110) Calcium 8.4 mg/dL mg/dL (8.4-10.2) Total Bilirubin 0.7 mg/dL mg/dL (0.2-1.3) AST 27 U/L U/L (17-59) ALT 32 U/L U/L (4-50
--- NOTE | 2020-09-20 13:54 | WPDURCON ---
Assessment and Plan Assessment and plan (1) Left ureteral stone: Code(s): N20.1 - Calculus of ureter Status: Acute Assessment and Plan: 64-year-old gentleman with a history of cirrhosis, thrombocytopenia and nephrolithiasis who presents with a 4mm distal left ureteral stone. Patient has been unable to get pain control in the emergency department. - CT pelvis to ensure that stone has not passed - If stone still present, plan left ureteroscopy laser lithotripsy stone extraction and stent insertion. Risks benefits are discussed with patient and agrees with plan Urology Consult Note HPI Date Seen: 09/20/20 Requesting Physician: Sherwin Moreno MD Primary Care Provider: Polo Martinez MD Consult Narrative Narrative: Barrera Giraldo is a 64 year old male who presented to the emergency room with left lower abdominal pain. The patient has a history of nephrolithiasis most recently with an ESWL in March of 2020 on the right side. The patient was found on CT scan imaging to have a 4mm left distal ureteral stone. The patient has been given multiple IV narcotics and been unable to have pain control. A urology consult called to assess the patient. The patient currently denies fevers, chills, nausea, vomiting, chest pain, shortness of breath, vision changes. [facility] Past Medical History Medical History (Updated 09/20/20 @ 13:56 by Sherwin Moreno MD) Arthritis Arthropathy in Crohn's disease (~1972) Crohn's disease DVT (deep venous thrombosis) Fatigue GERD (gastroesophageal reflux disease) Hypertension Kidney stone Left ureteral stone Surgical History Surgical History History of lithotripsy S/P small bowel resection Family History Family History Other Cerebrovascular accident Diabetes mellitus Family history of arthritis Family history of cardiovascular disease Hypertension Social History Social History Smoking status: Never smoker Alcohol intake: current Substance use: current Substance use type: marijuana Other substance usage details: MEDICAL MARIJUANA FOR PAIN CONTROL Spiritual care concerns: No Meds Home Medications and Allergies Home Medications Medication Instructions Recorded Confirmed Type Restasis 1 drp OPHTHALMIC (EYE) Q12H 10/01/19 04/21/20 History cyanocobalamin (vitamin B-12) 1,000 mcg PO DAILY 10/01/19 04/21/20 History [Vitamin B-12] hydrocodone-acetaminophen 1 tablet PO TID PRN 10/01/19 04/21/20 History lisinopril 40 mg PO DAILY 10/01/19 04/21/20 History magnesium oxide 400 mg PO BID 10/01/19 04/21/20 History omeprazole 20 mg PO DAILY 10/01/19 04/21/20 History potassium chloride 20 meq PO DAILY 10/01/19 04/21/20 History valacyclovir 500 mg PO DAILY 10/01/19 04/21/20 History amlodipine 10 mg tablet 10 mg PO DAILY 01/31/20 04/21/20 History prednisone 20 mg tablet 20 mg PO DAILY tablet 01/31/20 03/23/20 History Medical Cannabis 1 applic PO DIRECTED PRN 03/23/20 04/21/20 History Stelara 90 mg SUBCUT USEASDIRECTD 03/23/20 04/21/20 History cholecalciferol (vitamin D3) 125 mcg PO WEEKLY 03/23/20 04/21/20 History [Vitamin D3] doxazosin 2 mg PO DAILY 03/23/20 04/21/20 History budesonide 3 mg 3 mg PO DAILY 04/21/20 04/21/20 History capsule,delayed,extended release budesonide 3 mg 6 mg PO DAILY each 04/21/20 04/21/20 History capsule,delayed,extended release apixaban [Eliquis DVT-PE Treat 30D See Rx Instructions .ROUTE 07/26/20 Rx Start] .COMPLEX #74 ea Allergies Allergy/AdvReac Type Severity Reaction Status Date / Time ciprofloxacin Allergy Unknown REACTED TO Verified 09/20/20 10:15 VIGAMOX AND INSTRUCTED NOT TO TAKE CIPRO moxifloxacin Allergy Unknown REDNESS IN Verified 09/20/20 10:15 EYES hydromorphone [From Dilaudid] Allergy Hallucinati V
--- NOTE | 2020-09-20 14:00 | WPDANESEFPP ---
Anes - Eval Final PreProcedure Day of Procedure 09/20/20 14:00 Patient weight: overweight Heart: regular rate and rhythm Lungs: clear to auscultation Airway: Mallampati scale class II Last oral intake: 6 hours ASA classification: III Emergent: yes Anesthetic plan: proceed Anesthesia type and monitoring: general and standard monitoring Informed Consent: The patient's anesthetic plan and its attendant risks and benefits were discussed with the patient/family/POA. Questions were solicited and answers provided to the satisfaction of the patient/family/POA.
[2020-09-20] MEDS: SODIUM CHLORIDE 0.9% IV 250 ML 30 ML IV CONT (14:17)
[2020-09-20] MEDS: LACTATED RINGERS 1,000 ML 30 ML IV CONT (14:30)
--- NOTE | 2020-09-20 14:31 | WPDHPUPDATE1 ---
History and Physical Update Update Date/Time: 09/20/20 14:31 History and Physical has been reviewed, including an updated exam of the patient. There are NO changes in the patient's condition. Risks, benefits, and alternatives have been discussed and questions answered. Patient agrees to proceed with procedure -cystoscopy, left ureteroscopy, stone extraction, retrograde pyelogram, possible laser lithotripsy, possible stent insertion.
--- NOTE | 2020-09-20 14:35 | WPDANESEFPP ---
Anes - Eval Final PreProcedure Day of Procedure 09/20/20 14:35 Patient weight: overweight Heart: regular rate and rhythm Lungs: clear to auscultation Airway: Mallampati scale class II Neurological: alert and oriented Last oral intake: 6 hours ASA classification: III Emergent: yes Anesthetic plan: proceed Anesthesia type and monitoring: general LMA and standard monitoring Informed Consent: The patient's anesthetic plan and its attendant risks and benefits were discussed with the patient/family/POA. Questions were solicited and answers provided to the satisfaction of the patient/family/POA.
[2020-09-20] MEDS: ceFAZolin SODIUM 1 GM VIAL 2 GM IV PUSH (14:46)
[2020-09-20] MEDS: LIDOCAINE HCL 2% GEL UROJET 10 ML PKG MUCOUS MEM (14:47)
--- NOTE | 2020-09-20 15:07 | P.OP_ITS ---
Procedure Note - Detailed Date of procedure: 09/20/20 Pre-op diagnosis: Renal Stone Post-op diagnosis: same Procedure performed: Cystoscopy, left ureteroscopy, stone extraction, retrograde pyelogram, stent insertion. Description of procedure: Informed consent obtained. Patient taken the operative room. He was given preoperative IV antibiotics. He was induced anesthesia. He was placed in dorsal supine position. We inserted a 22 F cysto scope through the urethra into the bladder. The patient did have moderate bilobar prostatic hyperplasia. Inspection of the bladder revealed no mucosal abnormalities. We cannulated the left ureteral orifice. We dilated with a 10 coaxial dilator. We then advanced a semirigid ureteral scope into the distal ureter approximately 2cm above the ureterovesical junction, the stone was grasped with a Zero tip basket and removed. We then advanced the ureteroscope up to the level the mid ureter and there were no additional stones seen. A retrograde pyelogram performed that showed moderate left hydronephrosis. Over a wire with an place a 4.8 variable length stent with a curl in the renal pelvis and curl in the bladder. The bladder was emptied. 10cc of viscous lidocaine were instilled. the patient was then awakened and taken to PACU in stable condition Anesthesia: GLMA Surgeon: Sherwin Moreno MD Drains: No Packing: No Pathology: yes Complications: No immediate complications Condition: stable Disposition: PACU
--- NOTE | 2020-09-20 16:16 | SUR.PHASEII ---
right arm lateral to iv site,skin tear with bandaid applied. pt states frequently has skin tears.
== END 2020-09-20 16:23 | disposition home or self-care (01) ==
LOC: ANHED 11:00 → ANHSURGERY 12:18
PROVIDERS: Physician Assistant; Emergency Provider Emergency Medicine; PCP Family Medicine Adolescent Medicine; Visit Provider Urology
PROC: (CPT 52352; principal; 2020-09-20 14:00)
DX: N13.2 Hydronephrosis with renal and ureteral calculous obstruction (principal); D69.6 Thrombocytopenia, unspecified; K50.90 Crohn's disease, unspecified, without complications; I10 Essential (primary) hypertension; K21.9 Gastro-esophageal reflux disease without esophagitis; F12.90 Cannabis use, unspecified, uncomplicated; Z90.49 Acquired absence of other specified parts of digestive tract; Z79.01 Long term (current) use of anticoagulants; Z86.718 Personal history of other venous thrombosis and embolism
CPT/HCPCS: 52332; 52352; 36415; 36430; 72192; 74176; 74420; 80053; 81001; 82365; 85025; 85055; 86900; 86901; 87086; 87088; 88300; 96361; 96374; 96375; 96376; 99285; A9270; C1769; C2617; J0690; J1100; J2270; J2405; J2704; J3010; J7030; J7050; J7120; P9034; Q9966

== ENCOUNTER 2021-12-07 16:11 | Outpatient (CLI) | payer MEDICARE, SELFPAY ==
--- NOTE | ~2021-12-07 | US_ITS ---
EXAMINATION:US venous doppler LE LT INDICATION:Left leg edema TECHNIQUE: Multiple grayscale, color flow and Doppler images of the left lower extremity deep venous systems were obtained and reviewed. COMPARISON:Ultrasound dated 07/26/2020 FINDINGS: The common femoral, superficial femoral and popliteal veins demonstrate normal respiratory variation, augmentation and compressibility. Color flow is also seen within the posterior tibial, pe roneal, greater saphenous and profunda veins. IMPRESSION: 1: No lower extremity deep venous thrombosis. Reviewed, dictated and finalized at location B.
== END 2021-12-07 16:12 | disposition home or self-care (01) ==
LOC: ANHIMG 16:13
PROVIDERS: PCP Family Medicine Adolescent Medicine; Visit Provider Family Medicine Adolescent Medicine
DX: R60.0 Localized edema (principal)
CPT/HCPCS: 93971

== ENCOUNTER → 2022-05-02 07:39 | Outpatient (CLI) | payer MEDICARE, SELFPAY ==
--- NOTE | ~2022-05-02 | US_ITS ---
US right upper quadrant INDICATION: Cirrhosis PROCEDURE: Realtime right upper abdominal ultrasound. COMPARISON: Ultrasound dated 05/20/2016 FINDINGS: The pancreas is normal without focal mass or pancreatic ductal dilation. There is cirrhosi s of the liver with heterogeneous echotexture. No discrete mass. There is ascites. There is normal d irectional flow in the portal vein. Gallbladder is surgically absent. Common bile duct measures 4 mm. No sonographic Holley's sign. IMPRESSION: 1: Cirrhosis of the liver with ascites. Reviewed, dictated and finalized at location A.
== END ==
PROVIDERS: PCP Family Medicine Adolescent Medicine
DX: K74.60 Unspecified cirrhosis of liver (principal)
CPT/HCPCS: 76705

== ENCOUNTER 2022-06-18 15:04 | Observation (INO) | payer MEDICARE, SELFPAY ==
[2022-06-18] VITALS (12 sets, daily range): BP systolic 115–140; BP diastolic 72–96; PULSE 79–113; RESP 12–20; TEMP 36.3–36.8; O2SAT 98–100; BMI 21.3
[2022-06-18] MEDS: SODIUM CHLORIDE 0.9% IV 1,000 ML 999 ML IV CONT (15:40)
[2022-06-18 15:44] LABS: Hematocrit 23.6 % (42.0-52.0); Immature Granulocyte Absolute 0.25 K/mm3 (0.00-0.031); Immature Granulocyte Percent A 2.3 % (0-0.5); Immature Platelet Fraction Pct 1.7 % (0.9-11.2); Lymphocytes Absolute Auto 0.15 K/mm3 (0.9-3.2); Lymphocytes Percent Auto 1.4 % (18.3-44.2); Mean Corpuscular HGB Conc 29.7 g/dl (32-36); Mean Corpuscular Hemoglobin 25.5 pg (26-34); Mean Corpuscular Volume 86.1 fl (80-100); Mean Platelet Volume 9.5 fl (7.4-10.4); Monocytes Absolute Auto 0.6 K/mm3 (0.1-0.6); Monocytes Percent Auto 5.6 % (2.6-8.5); Neutrophils Absolute Auto 10.1 K/mm3 (1.3-6.7); Neutrophils Percent Auto 90.7 % (45.5-73.1); Nucleated Red Blood Cells Absolute Auto 0.1 K/mm3 (0.0-0.012); Nucleated Red Blood Cells Perc 0.5 % (0.0-0.2); Platelet Count Result 90 k/mm3 (150-375); Red Blood Count 2.74 M/mm3 (4.6-6.20); Red Cell Distribution Width 19.4 % (11.5-14.5); White Blood Count 11.1 K/mm3 (4.5-10.0)
[2022-06-18 15:53] LABS: Alanine Aminotransferase 46 U/L (6-50); Albumin Level 2.6 g/dL (3.5-5.1); Alkaline Phosphatase 114 U/L (38-126); Anion Gap 8 mmol/L (8-16); Aspartate Amino Transferase 28 U/L (17-59); Blood Urea Nitrogen 50 mg/dL (9-20); Calcium 7.7 mg/dL (8.4-10.2); Carbon Dioxide 19 mmol/L (22-30); Chloride 102 mmol/L (98-107); Estimated CRCL calculation 37 ml/min; Estimated Glomerular Filt Rate 43; Glucose 187 mg/dL (65-110); Potassium 4.8 mmol/L (3.4-5.0); Sodium 129 mmol/L (137-145)
[2022-06-18 16:12] LABS: Anisocytosis 2+ (NORMAL); Ovalocytes 1+ (NORMAL); Poikilocytosis 1+ (NORMAL)
[2022-06-18 16:13] LABS: Schistocytes None Seen (NORMAL)
[2022-06-18 16:16] LABS: Platelet Estimate Decreased (Adequate)
--- NOTE | 2022-06-18 16:44 | ED.WEAKNESS ---
HPI - Weakness General Chief complaint: Weakness Stated complaint: dizzy, lowered self to ground, weakness Time Seen by Provider: 06/18/22 15:04 History of Present Illness HPI Narrative: Patient is a 66-year-old male who presents ER after having a fall at home. Patient reports she has long history of Crohn's disease and is chronically weakened by it. He had ridden his 4 flores out to get the mail and then when he was coming back he got off so he could rake some gravel in his driveway. When he stood on the gravel he reports he lost his balance and fell onto his buttock. He did not strike his head or lose consciousness. EMS arrived to get him off the ground and pulled the skin off his arms backs and assisting him up because his skin is thin. His then wanted him to be evaluated in the ER to receive fluids because he is dizzy regularly with going from sitting to standing. Related Data Home Medications Medication Instructions Recorded Confirmed cyanocobalamin (vitamin B-12) 1,000 mcg PO DAILY 10/01/19 12/01/21 1,000 mcg tablet (Vitamin B-12) cyclosporine 0.05 % eye drops in a 1 drp ophthalmic (eye) Q12H 10/01/19 12/01/21 dropperette (Restasis) lisinopril 40 mg tablet 40 mg PO DAILY 10/01/19 12/01/21 potassium chloride 20 mEq 20 meq PO DAILY 10/01/19 12/01/21 tablet,extended release budesonide 3 mg 3 mg PO DAILY 04/21/20 04/21/20 capsule,delayed,extended release (Entocort EC) budesonide 3 mg 9 mg PO DAILY 12/01/21 12/01/21 capsule,delayed,extended release (Entocort EC) cholecalciferol (vitamin D3) 125 125 mcg PO DAILY 12/01/21 12/01/21 mcg (5,000 unit) tablet (Vitamin D3) ferrous sulfate 325 mg (65 mg 325 mg PO DAILY 12/01/21 12/01/21 iron) tablet magnesium oxide 250 mg PO BID 12/01/21 12/01/21 prednisone 20 mg tablet 20 mg PO .PRN 12/01/21 12/01/21 ustekinumab 90 mg/mL subcutaneous 90 mg subcut USEASDIRECTD 12/01/21 12/01/21 syringe (Stelara) zinc sulfate 25 mg zinc (110 mg) 25 mg PO DAILY 12/01/21 12/01/21 tablet (Orazinc) Allergies Allergy/AdvReac Type Severity Reaction Status Date / Time ciprofloxacin Allergy Unknown REACTED TO Verified 06/18/22 15:11 VIGAMOX AND INSTRUCTED NOT TO TAKE CIPRO moxifloxacin Allergy Unknown REDNESS IN Verified 06/18/22 15:11 EYES hydromorphone [From Dilaudid] AdvReac Hallucinati Verified 06/18/22 15:21 ng Review of Systems Review of Systems: All systems reviewed & are unremarkable except as noted in HPI and below Constitutional: Constitutional: Denies chills, Reports fatigue and Denies fever(s) ENT: Denies nasal congestion and Denies sore throat Cardiovascular: Cardiovascular: Denies chest pain, Denies rapid heart rate and Denies radiating jaw, neck or arm pain Respiratory: Respiratory: Denies cough and Denies dyspnea Gastrointestinal: Gastrointestinal: Denies abdominal pain, Denies nausea and Denies vomiting Integumentary/Breasts: Comments: Skin tears bilateral upper extremities. Neurologic: Reports dizziness, Denies syncope and Denies headache(s) [facility] Past Medical History Medical History (Updated 06/18/22 @ 16:58 by Arnold Bautista MD) Abnormal colonoscopy 09/11 Arthritis Arthropathy in Crohn's disease (~1971) Crohn's disease DVT (deep venous thrombosis) GERD (gastroesophageal reflux disease) Hypertension Kidney stone Surgical History Surgical History (Updated 11/30/21 @ 11:55 by Polo Martinez MD) History of cholecystectomy 2014 History of lithotripsy S/P small bowel resection Family History Family History (Updated 12/01/21 @ 09:57 by Shine Nguyễn MA) Father Acute myocardial infarction Carcinoma of colon Cerebrovascular accident Colon polyp Diabetes mellitus Family history of arthritis Heart disease Hypertension Mother Diabetes mellitus Family history of arthritis Hypertension Other Family history of cardiovascular disease Social His
--- NOTE | 2022-06-18 17:12 | PC.NURSE ---
ordered pt dinner tray.
[2022-06-18 17:45] LABS: SARS-CoV-2 RNA PCR Negative
--- NOTE | 2022-06-18 17:45 | PM.IMHP ---
H&P: HPI History of Present Illness Date/Time: 06/18/22 17:45 Chief Complaint: Weakness. Narrative: This is a very pleasant, chronically ill 66-year-old male with Crohn's disease, hypertension, and gastroesophageal reflux disease who presented to the emergency department via EMS for evaluation of weakness. He has had some problems with anemia over the last several months and in fact about 5 to 6 weeks ago his hemoglobin was down to right around 7 and he was transfused a couple of units of packed red blood cells. He had what sounds like an upper and lower endoscopy done by his safety advisor, Dr. Amish Cee, at [facility] in [place]. It is my understanding that he had some AVMs in the stomach which were cauterized without any other significant findings. He also had a capsule endoscopy and an MRE done earlier this week, results still pending. In any regard he was told that he could restart on his Eliquis which he has taken for over a year after he had an extensive left lower extremity DVT requiring thrombectomy. In any event, he has felt increasingly weak and fatigued over the last couple of weeks and today he was outside doing some raking when he slipped on some rocks and when he bent over to catch his balance he felt as though he was going to pass out so he sat down on the rocks. He was too weak to get up and EMS was summoned. His vital signs were stable on arrival to the emergency department. His hemoglobin and hematocrit were 7.0 and 23.6% respectively and he is being admitted in this setting for transfusion and closer monitoring overnight. Additionally he was found to have a sodium of 129, BUN 50, creatinine 1.60. With further questioning he has not been eating very well, just has a poor appetite. He has not had vomiting or diarrhea. On exam today he had skin tears of both arms and he reports that his skin is very thin and tears easily. 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 He has not noticed any dark or bloody stools. Review of Systems Review of Systems: Twelve systems were reviewed. No fever, chills, or sweats. No recent cold or flu symptoms. He denies chest pain and shortness of breath. He has not noticed any dark stools. No dysuria or hematuria. He has a history of ascites and has noted that his abdomen seems a bit more distended recently. He is not having any abdominal pain. Except as documented, all other systems were reviewed and are negative. [facility] Past Medical History Medical History (Updated 06/18/22 @ 23:02 by Jayshree Reeves PA-C) Arthritis Arthropathy in Crohn's disease Chronic anemia Cirrhosis Crohn's disease Deep venous thrombosis Gastroesophageal reflux disease Hypertension Kidney stone Thrombocytopenia Surgical History Surgical History (Updated 06/18/22 @ 17:44 by Jayshree Reeves PA-C) History of cholecystectomy (2014) History of lithotripsy History of resection of small bowel Status post LASIK surgery of both eyes Family History Family History Father Acute myocardial infarction Carcinoma of colon Cerebrovascular accident Colon polyp Diabetes mellitus Family history of arthritis Heart disease Hypertension Mother Diabetes mellitus Family history of arthritis Hypertension Other Family history of cardiovascular disease Social History Social History (Updated 06/18/22 @ 22:55 by Jayshree Reeves PA-C) Social History: Surrogate medical decision maker: Helena Giraldo, spouse. Code status: Full code. Smoking status: Never smoker Second hand tobacco smoke exposure: No Alcohol intake: never Substance use: never Spiritual care concerns: No Agree to blood products: Yes Meds Home Medications and Allergies Home Medications Medication I
[2022-06-18] MEDS: SODIUM CHLORIDE 0.9% IV 250 ML 30 ML IV CONT (18:23)
[2022-06-18] MEDS: TUBING, BLOOD PLUM PUMP TUBING 1 EACH XX ×2 (18:23→23:06)
[2022-06-18] MEDS: HYDROcodone/acetaminophen (*CRX) 5-325 MG TABLET 1 TAB PO (19:23)
[2022-06-18] MEDS: MORPHINE SULFATE (*CRX) 4 MG/ML INJ IV PUSH ×2 (20:18→22:46)
--- NOTE | 2022-06-18 22:10 | ADMGEN ---
This patient, Barrera Giraldo, was admitted to [facility] Surg Room 330-01 at 1942. Patient/family oriented to hospital policies and general routines including ID bracelet, bed and alarms, visiting hours, pain management, procedures, bathroom and other care routines, personal items, smoking policy, room service/diet, and visiting hours. Information on how to activate the Rapid Response Team has been discussed. Patient/Family are encouraged to report perceived risks to care and to ask questions if they do not understand what they are told or what they should do.
[2022-06-19] VITALS (11 sets, daily range): BP systolic 125–146; BP diastolic 81–97; PULSE 69–117; RESP 12–20; TEMP 36.3–36.5; O2SAT 99–100
[2022-06-19] MEDS: DICYCLOMINE HCL 10 MG CAPSULE PO ×4 (01:43→16:43)
[2022-06-19] MEDS: CLARITHROMYCIN 500 MG TABLET PO ×3 (01:44→20:09)
[2022-06-19] MEDS: PANTOPRAZOLE 40 MG TABLET PO ×3 (01:44→20:09)
[2022-06-19] MEDS: SODIUM CHLORIDE 0.9% IV 1,000 ML 100 ML IV CONT (01:45)
[2022-06-19] MEDS: HYDROcodone/acetaminophen (*CRX) 7.5-325 MG TABLET 1 TAB PO ×2 (03:07→08:57)
[2022-06-19 06:46] LABS: Hematocrit 31.5 % (42.0-52.0); Hemoglobin 9.8 g/dL (14.0-18.0); Immature Platelet Fraction Pct 2.6 % (0.9-11.2); Mean Corpuscular HGB Conc 31.1 g/dl (32-36); Mean Corpuscular Hemoglobin 27.5 pg (26-34); Mean Corpuscular Volume 88.2 fl (80-100); Mean Platelet Volume 10.3 fl (7.4-10.4); Platelet Count Result 55 k/mm3 (150-375); Red Blood Count 3.57 M/mm3 (4.6-6.20); Red Cell Distribution Width 17.2 % (11.5-14.5); White Blood Count 7.6 K/mm3 (4.5-10.0)
[2022-06-19 07:17] LABS: Alanine Aminotransferase 45 U/L (6-50); Albumin Level 2.4 g/dL (3.5-5.1); Alkaline Phosphatase 96 U/L (38-126); Anion Gap 6 mmol/L (8-16); Aspartate Amino Transferase 29 U/L (17-59); Bilirubin,Total 1.3 mg/dL (0.2-1.3); Blood Urea Nitrogen 46 mg/dL (9-20); Calcium 7.5 mg/dL (8.4-10.2); Carbon Dioxide 21 mmol/L (22-30); Chloride 104 mmol/L (98-107); Estimated CRCL calculation 47 ml/min; Estimated Glomerular Filt Rate 55; Glucose 139 mg/dL (65-110); Magnesium 1.9 mg/dL (1.6-2.3); Potassium 4.4 mmol/L (3.4-5.0); Sodium 131 mmol/L (137-145)
[2022-06-19 07:34] LABS: Hemoglobin A1C 5.5 % (<5.7)
[2022-06-19 07:38] LABS: Thyroid Stimulating Hormone Reflex 0.039 uIU/mL (0.465-4.68)
[2022-06-19 07:39] LABS: Cortisol Baseline 2.86 ug/dL
[2022-06-19] MEDS: POTASSIUM CHLORIDE 20 MEQ TABLET.ER PO (08:52)
[2022-06-19] MEDS: valACYclovir HCL 500 MG TABLET PO (08:52)
[2022-06-19] MEDS: FERROUS SULFATE 324 MG TABLET PO (08:53)
[2022-06-19] MEDS: CHOLECALCIFEROL 1,000 UNITS TABLET 5000 UNITS PO (08:54)
[2022-06-19] MEDS: MAGNESIUM OXIDE 200 MG TABLET PO ×2 (08:54→16:43)
[2022-06-19] MEDS: BUDESONIDE 3 MG CAP.SR.24H 6 MG PO (08:56)
[2022-06-19] MEDS: CYANOCOBALAMIN 1,000 MCG TABLET 1000 MCG PO (08:56)
--- NOTE | 2022-06-19 11:20 | WPDGICN ---
Assessment and Plan Assessment and plan (1) Symptomatic anemia: Code(s): D64.9 - Anemia, unspecified Status: Acute Assessment and Plan: is concerning that he received 2 units of blood just a few weeks ago and now his hemoglobin has dropped again to 7 requiring 2 more units. He has not have active gastrointestinal bleeding at this time. He underwent upper gastrointestinal endoscopy just a couple of weeks ago at another hospital. That did reveal portal hypertensive gastropathy and few punctate tiny angiodysplastic lesions in the gastric antrum that were obliterated. A colonoscopy was unremarkable. He then underwent capsule endoscopy. He states that it took 60 hours for the capsule to finally pass through the small bowel. Finally, MR enterography was done on Monday and of course those results are pending. (2) Crohn's disease: Code(s): K50.90 - Crohn's disease, unspecified, without complications Status: Acute Assessment and Plan: this has been a problem for over 40 years. He was diagnosed with Crohn's disease about 40 years ago. He has been on many medications over the years. He had been on Humira until it became ineffective then was tried on Entyvio but now is taking Stelara along with budesonide. an MR ED was performed Monday to further investigate a possible stricture in the small bowel and that study is pending. He may have another stricture but it seemed at least this morning he is tolerating a low residue diet. (3) Generalized weakness: Code(s): R53.1 - Weakness Status: Acute Assessment and Plan: I assume this is multifactorial but recent weakness likely due to his anemia. (4) Cirrhosis: Code(s): K74.60 - Unspecified cirrhosis of liver Status: Acute Assessment and Plan: He has been followed at the liver clinic at [facility] for cirrhosis which is thought to be due to JIMENEZ. He has required a paracentesis on 1 occasion. He thinks he may have a little ascitic fluid now but does not feel tight or uncomfortable. Varices had not been found on EGD. He does not drink alcohol. He does not have a family history of liver disease. Liver function studies are normal here. (5) Dermatitis: Code(s): L30.9 - Dermatitis, unspecified Status: Acute Assessment and Plan: He describes this as it infection due to micro bacteria for which she is taking an antibiotic, omadacycline. This developed after his thrombectomy for deep vein thrombosis (6) halfway (current) use of anticoagulants: Code(s): Z79.01 - halfway (current) use of anticoagulants Status: Acute Assessment and Plan: due to having had severe deep vein thrombosis she is taking Eliquis chronically. (7) Protein calorie malnutrition: Code(s): E46 - Unspecified protein-calorie malnutrition Status: Acute Assessment and Plan: his total protein is only 4, and albumin is 2.4. He states that he is able to tolerate it fairly normal diet as long as he avoids high-fiber due to his history of strictures Plan because he is followed by a outreach analyst who has been investigating him for anemia, I think that if his blood counts remain stable today and he has no issues with eating, that we may be able to discharge him within the next 24 hours under the care of his outreach analyst, Dr. Cee GI Consult Note Consult date/time: 06/19/22 11:20 HPI: Barrera Giraldo is a 66 year old male Who presented to the emergency room with weakness and abdominal pain. He was also found to be anemic with a hemoglobin of 7. After transfusion with 2 units of blood is up to 9.8. This is concerning, as he just a few weeks ago required transfusion of 2 units for almost identical blood counts. he has not seen blood in his stools over the last couple of days but recently he had had soft thin yellow stools with streaks of blood. He was diagnosed with Croh
--- NOTE | 2022-06-19 11:38 | PHAR ---
Home medication Clofazimine 50mg capsules seen in pharmacy and returned to [address] [place] [address] unit
[2022-06-19] MEDS: HYDROcodone/acetaminophen (*CRX) 7.5-325 MG TABLET 1.5 TAB PO ×2 (13:21→20:12)
--- NOTE | 2022-06-19 13:33 | PHAR ---
PT'S HOME MED NUZYRA (OMADACYCLINE) 150 MG TABS VERIFIED BY PHARMACY
[2022-06-19 14:23] LABS: Free T4 Free Thyroxine Reflex 1.08 ng/dL (0.78-2.19)
--- NOTE | 2022-06-19 15:45 | PM.IMPN ---
Progress Note: A&P Assessment and Plan (1) Generalized weakness: Code(s): R53.1 - Weakness Status: Acute (2) Symptomatic anemia: Code(s): D64.9 - Anemia, unspecified Status: Acute Assessment and Plan: moniotr hgb overnight possible dc in am (3) Thrombocytopenia: Code(s): D69.6 - Thrombocytopenia, unspecified Status: Acute (4) Renal insufficiency: Code(s): N28.9 - Disorder of kidney and ureter, unspecified Status: Acute (5) Hyponatremia: Code(s): E87.1 - Hypo-osmolality and hyponatremia Status: Acute (6) Cirrhosis: Code(s): K74.60 - Unspecified cirrhosis of liver Status: Acute (7) Crohn's disease: Code(s): K50.90 - Crohn's disease, unspecified, without complications Status: Acute (8) Hyperglycemia: Code(s): R73.9 - Hyperglycemia, unspecified Status: Acute Subjective Date/time seen: 06/19/22 15:45 no new complaints Exam Narrative: General: Chronically ill-appearing gentleman sitting up in bed. Weight: 65.5 kilograms. BMI: 21.3. HEENT: PERRL, EOMI. Sclera anicteric. Tacky mucous membranes. Neck: Supple. No JVD. Respiratory: Lungs are clear to auscultation bilaterally. Cardiovascular: Regular rate and rhythm with S1-S2. Gastrointestinal: Abdomen is slightly protuberant and nontender with positive bowel sounds. There is dullness to percussion at the flanks. No guarding or rebound tenderness. Skin: Warm and dry. Generalized pallor. Scattered bruises on the trunk from where he laid down in the rocks to prevent falling. Skin tears on both forearms or recently dressed and these were not removed for evaluation. Bruising on upper extremities. Extremities: No cyanosis or clubbing. Trace yary ankle edema left greater than right. Chronic per patient report. Peripheral pulses intact. Neurological: Alert and oriented x4 Cranial nerves 2-12 are grossly intact. No gross focal deficits to casual conversation. Psychiatric: Pleasant and cooperative with normal mood and affect. Judgment and insight intact. He is in good spirits. Objective Data Vital Signs Vital Signs: Vital Signs - 24 hr 06/18/22 17:06 06/18/22 18:30 06/18/22 18:50 Temperature 97.6 F 97.6 F Pulse Rate 86 100 99 Respiratory Rate 12 12 16 Blood Pressure 120/88 124/88 121/72 Pulse Oximetry 100 100 100 Oxygen Delivery 06/18/22 19:50 06/18/22 20:50 06/18/22 19:15 Temperature 97.4 F L 97.5 F L Pulse Rate 83 79 94 Respiratory Rate 20 20 16 Blood Pressure 120/84 136/80 Pulse Oximetry 100 100 100 Oxygen Delivery 06/18/22 21:23 06/18/22 20:50 06/18/22 21:45 Temperature 97.7 F 97.6 F 97.6 F Pulse Rate 85 81 81 Respiratory Rate 20 18 18 Blood Pressure 124/87 140/76 140/76 Pulse Oximetry 98 98 98 Oxygen Delivery 06/18/22 22:45 06/19/22 01:00 06/19/22 00:00 Temperature 97.7 F 97.7 F Pulse Rate 82 69 80 Respiratory Rate 20 20 Blood Pressure 115/89 131/88 Pulse Oximetry 100 99 Oxygen Delivery 06/19/22 04:00 06/19/22 04:00 06/19/22 08:00 Temperature 97.5 F L Pulse Rate 79 85 117 H Respiratory Rate 20 Blood Pressure 132/82 Pulse Oximetry 100 Oxygen Delivery 06/19/22 12:00 06/19/22 14:07 06/19/22 14:00 Temperature 97.3 F L Pulse Rate 113 H 99 Respiratory Rate 12 Blood Pressure 135/90 Pulse Oximetry 100 Oxygen Delivery Room Air 06/19/22 14:00 06/19/22 14:00 06/19/22 14:00 Temperature 97.3 F L Pulse Rate 99 Respiratory Rate 12 Blood Pressure 146/97 H 135/90 139/95 H Pulse Oximetry 100 Oxygen Delivery 06/18/22 20:42 06/18/22 20:57 Temperature 97.4 F L 97.5 F L Pulse Rate 83 79 Respiratory Rate 20 Blood Pressure 120/84 136/80 Pulse Oximetry Oxygen Delivery Intake/Output Intake/Output: Intake & Output 06/16/22 06/17/22 06/18/22 06/19/22 23:59 23:59 23:59 23:59 Intake Total 1350 350 Output Total 350 Balance 1350 0 Meds/Results Medic
[2022-06-20] VITALS (9 sets, daily range): BP systolic 116–136; BP diastolic 68–97; PULSE 78–142; RESP 14–16; TEMP 36.6–37.2; O2SAT 97–100
[2022-06-20] MEDS: HYDROcodone/acetaminophen (*CRX) 7.5-325 MG TABLET 1.5 TAB PO ×2 (02:02→09:24)
[2022-06-20 06:39] LABS: Hematocrit 33.8 % (42.0-52.0); Hemoglobin 10.6 g/dL (14.0-18.0); Immature Granulocyte Absolute 0.16 K/mm3 (0.00-0.031); Immature Granulocyte Percent A 1.8 % (0-0.5); Lymphocytes Absolute Auto 0.34 K/mm3 (0.9-3.2); Lymphocytes Percent Auto 3.8 % (18.3-44.2); Mean Corpuscular HGB Conc 31.4 g/dl (32-36); Mean Corpuscular Hemoglobin 27.3 pg (26-34); Mean Corpuscular Volume 87.1 fl (80-100); Mean Platelet Volume 9.2 fl (7.4-10.4); Monocytes Absolute Auto 0.5 K/mm3 (0.1-0.6); Monocytes Percent Auto 5.7 % (2.6-8.5); Neutrophils Absolute Auto 7.8 K/mm3 (1.3-6.7); Neutrophils Percent Auto 88.7 % (45.5-73.1); Platelet Count Result 61 k/mm3 (150-375); Red Blood Count 3.88 M/mm3 (4.6-6.20); Red Cell Distribution Width 17.2 % (11.5-14.5); White Blood Count 8.8 K/mm3 (4.5-10.0)
--- NOTE | 2022-06-20 07:26 | WPDGIPROGNO ---
Progress Note: A&P Assessment and Plan (1) Symptomatic anemia: Code(s): D64.9 - Anemia, unspecified Status: Acute Assessment and Plan: is concerning that he received 2 units of blood just a few weeks ago and now his hemoglobin has dropped again to 7 requiring 2 more units. He has not have active gastrointestinal bleeding at this time. He underwent upper gastrointestinal endoscopy just a couple of weeks ago at another hospital. That did reveal portal hypertensive gastropathy and few punctate tiny angiodysplastic lesions in the gastric antrum that were obliterated. A colonoscopy was unremarkable. He then underwent capsule endoscopy. He states that it took 60 hours for the capsule to finally pass through the small bowel. Finally, MR enterography was done on Monday and of course those results are pending. (2) Crohn's disease: Code(s): K50.90 - Crohn's disease, unspecified, without complications Status: Acute Assessment and Plan: this has been a problem for over 40 years. He was diagnosed with Crohn's disease about 40 years ago. He has been on many medications over the years. He had been on Humira until it became ineffective then was tried on Entyvio but now is taking Stelara along with budesonide. an MR ED was performed Monday to further investigate a possible stricture in the small bowel and that study is pending. He may have another stricture but it seemed at least this morning he is tolerating a low residue diet. (3) Generalized weakness: Code(s): R53.1 - Weakness Status: Acute Assessment and Plan: I assume this is multifactorial but recent weakness likely due to his anemia. 06/20/2022 he states he still feels weak, tired even though his blood counts have come up. (4) Cirrhosis: Code(s): K74.60 - Unspecified cirrhosis of liver Status: Acute Assessment and Plan: He has been followed at the liver clinic at [facility] for cirrhosis which is thought to be due to JIMENEZ. He has required a paracentesis on 1 occasion. He thinks he may have a little ascitic fluid now but does not feel tight or uncomfortable. Varices had not been found on EGD. He does not drink alcohol. He does not have a family history of liver disease. Liver function studies are normal here. (5) Dermatitis: Code(s): L30.9 - Dermatitis, unspecified Status: Acute Assessment and Plan: He describes this as it infection due to micro bacteria for which she is taking an antibiotic, omadacycline. This developed after his thrombectomy for deep vein thrombosis (6) group home (current) use of anticoagulants: Code(s): Z79.01 - terminal manager (current) use of anticoagulants Status: Acute Assessment and Plan: due to having had severe deep vein thrombosis she is taking Eliquis chronically. (7) Protein calorie malnutrition: Code(s): E46 - Unspecified protein-calorie malnutrition Status: Acute Assessment and Plan: his total protein is only 4, and albumin is 2.4. He states that he is able to tolerate it fairly normal diet as long as he avoids high-fiber due to his history of strictures Plan because he is followed by a fertilizer processing supervisor who has been investigating him for anemia, I think that if his blood counts remain stable today and he has no issues with eating, that we may be able to discharge him within the next 24 hours under the care of his fertilizer processing supervisor, Dr. Cee Subjective Date/time seen: Barrera Giraldo is a 66 year old male ? Who presented to the emergency room with weakness and abdominal pain.? He was also found to be anemic with a hemoglobin of 7.? After transfusion with 2 units of blood is up to 9.8.? This is concerning, as he just a few weeks ago required transfusion of 2 units for almost identical blood counts.? he has not seen blood in his stools over the last couple of days but recently he had had soft thin yellow
[2022-06-20] MEDS: valACYclovir HCL 500 MG TABLET PO (08:38)
[2022-06-20] MEDS: POTASSIUM CHLORIDE 20 MEQ TABLET.ER PO (08:38)
[2022-06-20] MEDS: PANTOPRAZOLE 40 MG TABLET PO (08:38)
[2022-06-20] MEDS: CLARITHROMYCIN 500 MG TABLET PO (08:38)
[2022-06-20] MEDS: FERROUS SULFATE 324 MG TABLET PO (08:38)
[2022-06-20] MEDS: DICYCLOMINE HCL 10 MG CAPSULE PO ×2 (08:38→12:46)
[2022-06-20] MEDS: BUDESONIDE 3 MG CAP.SR.24H 6 MG PO (08:39)
[2022-06-20] MEDS: CYANOCOBALAMIN 1,000 MCG TABLET 1000 MCG PO (08:39)
[2022-06-20] MEDS: MAGNESIUM OXIDE 200 MG TABLET PO (08:39)
[2022-06-20] MEDS: CHOLECALCIFEROL 1,000 UNITS TABLET 5000 UNITS PO (08:39)
--- NOTE | 2022-06-20 11:27 | PM.DS ---
DS: Admitting Diagnosis Discharge Date June 20, 2022 Admitting Diagnosis GI bleed DS: Discharge Diagnosis Discharge Diagnosis (1) Generalized weakness: Code(s): R53.1 - Weakness Status: Acute (2) Symptomatic anemia: Code(s): D64.9 - Anemia, unspecified Status: Acute Assessment and Plan: moniotr hgb overnight possible dc in am (3) Thrombocytopenia: Code(s): D69.6 - Thrombocytopenia, unspecified Status: Acute (4) Renal insufficiency: Code(s): N28.9 - Disorder of kidney and ureter, unspecified Status: Acute (5) Hyponatremia: Code(s): E87.1 - Hypo-osmolality and hyponatremia Status: Acute (6) Cirrhosis: Code(s): K74.60 - Unspecified cirrhosis of liver Status: Acute (7) Crohn's disease: Code(s): K50.90 - Crohn's disease, unspecified, without complications Status: Acute (8) Hyperglycemia: Code(s): R73.9 - Hyperglycemia, unspecified Status: Acute DS: Summary Hospital Course Hospital Course: patient was admitted for symptomatic anemia secondary to GI bleed. This was acute. He did require 2units of blood transfusion however his hemoglobin has been stable for about 36hours. Patient did have extensive GI workup and follows with this pc maintenance technician at [facility]. He does have a history of AVM and Crohn's disease. All of this is chronic and stable and likely the source of his bleeding. Nonetheless no reason to repeat GI workup here. Hemoglobin is now stable he can follow-up with his primary pc maintenance technician at [facility]. Time Spent with Patient Time attestation: Total time spent providing and/or coordinating discharge services: Exam Narrative: General: Chronically ill-appearing gentleman sitting up in bed. Weight: 65.5 kilograms. BMI: 21.3. HEENT: PERRL, EOMI. Sclera anicteric. Tacky mucous membranes. Neck: Supple. No JVD. Respiratory: Lungs are clear to auscultation bilaterally. Cardiovascular: Regular rate and rhythm with S1-S2. Gastrointestinal: Abdomen is slightly protuberant and nontender with positive bowel sounds. There is dullness to percussion at the flanks. No guarding or rebound tenderness. Skin: Warm and dry. Generalized pallor. Scattered bruises on the trunk from where he laid down in the rocks to prevent falling. Skin tears on both forearms or recently dressed and these were not removed for evaluation. Bruising on upper extremities. Extremities: No cyanosis or clubbing. Trace yary ankle edema left greater than right. Chronic per patient report. Peripheral pulses intact. Neurological: Alert and oriented x4 Cranial nerves 2-12 are grossly intact. No gross focal deficits to casual conversation. Psychiatric: Pleasant and cooperative with normal mood and affect. Judgment and insight intact. He is in good spirits. DS: Data Data Completed and Pending Labs on day of discharge: Labs from last 24 hours 06/20/22 06/19/22 06/19/22 06:19 06:20 06:20 WBC 8.8 RBC 3.88 L Hgb 10.6 L Hct 33.8 L MCV 87.1 MCH 27.3 MCHC 31.4 L RDW 17.2 H Plt Count 61 L MPV 9.2 Immature Gran % (Auto) 1.8 H Neut % (Auto) 88.7 H Lymph % (Auto) 3.8 L [place] % (Auto) 5.7 Eos % (Auto) 0.0 Baso % (Auto) 0.0 L Lymph # (Auto) 0.34 L [place] # (Auto) 0.5 Eos # (Auto) 0.0 Baso # (Auto) 0.0 Abs Immat Gran (auto) 0.16 H Absolute Neuts (auto) 7.8 H Absolute Nucleated RBC 0.0 Nucleated RBC % 0.0 % Immature Plt Fraction 3.0 Free T4 1.08 Total T3 0.60 L Discharge Plan Discharge Attending physician on discharge: Jaleel Fisher Consulting providers: Inocente Javed Discharging Clinician: Jaleel Fisher Patient Disposition: Home, Self-Care Activity: no preference Diet: as tolerated Patient Instructions: Antibiotic Form, Pain Management in Older Adults (DC), Weakness (GEN), Anemia (
== END 2022-06-20 13:55 | disposition home or self-care (01) ==
LOC: ANHED 16:58 → ANH3MEDSUR 06-19 00:47
PROVIDERS: Physician Assistant; Admitting Provider Internal Medicine; Emergency Provider Emergency Medicine; PCP Family Medicine Adolescent Medicine; Visit Provider Chiropractor
DX: D64.9 Anemia, unspecified (principal); R53.1 Weakness; K50.90 Crohn's disease, unspecified, without complications; K74.60 Unspecified cirrhosis of liver; D69.6 Thrombocytopenia, unspecified; E87.1 Hypo-osmolality and hyponatremia; R73.9 Hyperglycemia, unspecified; N28.9 Disorder of kidney and ureter, unspecified; I10 Essential (primary) hypertension; K21.9 Gastro-esophageal reflux disease without esophagitis; L30.9 Dermatitis, unspecified; E46 Unspecified protein-calorie malnutrition; Z68.21 Body mass index [BMI] 21.0-21.9, adult; Z86.718 Personal history of other venous thrombosis and embolism; F12.90 Cannabis use, unspecified, uncomplicated; Z79.01 Long term (current) use of anticoagulants; Z79.891 Long term (current) use of opiate analgesic; Z20.822 Contact with and (suspected) exposure to COVID-19
CPT/HCPCS: 36415; 36430; 80053; 82533; 83036; 83735; 84439; 84443; 84480; 85025; 85027; 85055; 86850; 86900; 86901; 86920; 96361; 96374; 96376; 97161; 97165; 99285; A9270; C9803; G0378; J2270; J7030; J7050; P9016; U0003; U0005